=== PATIENT | female | born 1960 | race Caucasian/White ===

== ENCOUNTER → 2018-01-17 | Outpatient (CLI) | payer OTHER ==
[~2018-01-17] MED LIST: ALBU90OI61 INH; ATEN100 PO; ELIQUIS5 MG PO; HYDR1TAB94 PO; MAGOXI400 PO; Micardis80 MG PO; NYST100000; Percocet 5-3251 EACH PO; TELM80 PO; Voltaren100 GM TP; Zofran8 MG PO
[2018-01-17 19:13] LABS: Magnesium, Blood 1.7 mg/dL (1.6-2.4)
[2018-01-17 19:36] LABS: Alanine Aminotransfer (ALT/SGP 27 U/L (12-78); Albumin, Blood 3.9 g/dL (3.4-5.0); Alk Phos 155 U/L (50-136); Anion Gap 9 mmol/L (6-16); Aspartate Aminotrans (AST/SGOT 33 U/L (12-37); Bilirubin, Total 0.5 mg/dL (0.1-1.0); Blood Urea Nitrogen 6 mg/dL (8-24); Bun/Creatinine Ratio 8.9 (12.0-20.0); CO2, Blood 28 mmol/L (21-32); Calcium, Blood 9.5 mg/dL (8.5-10.1); Chloride, Blood 99 mmol/L (98-108); Creatinine, Blood 0.68 mg/dL (0.40-1.00); Globulin, Blood 3.8 g/dL (2.2-4.0); Glomerular Filtration Rate >60 (60-); Glucose, Blood 91 mg/dL (70-99); Potassium, Blood 4.3 mmol/L (3.5-5.5); Sodium, Blood 136 mmol/L (136-145); Total Protein, Blood 7.7 g/dL (6.4-8.2)
== END ==
LOC: LAB SHORT 16:00 → LAB 16:00
PROVIDERS: Family Medicine
DX: R94.5 Abnormal results of liver function studies (principal)
CPT/HCPCS: 80053; 82306; 82607; 82746; 83735

== ENCOUNTER 2018-07-07 13:49 | Day surgery (SDC) | payer OTHER ==
[~2018-07-07 13:49] MED LIST changes: +Ativan1 MG SL; +HYDMOR2 PO; +PROM25 PO; +Phenergan25 MG PR; +TRAM50 PO; +Zofran Odt4 MG SL
== END 2018-07-07 22:44 | disposition home or self-care (01) ==
LOC: CT 13:49 → ORD 13:49
PROC: 0FB23ZX Excision of Left Lobe Liver, Percutaneous Approach, Diagnostic (ICD-10-PCS; principal; 2018-07-07)
DX: C78.7 Secondary malignant neoplasm of liver and intrahepatic bile duct (principal); C34.2 Malignant neoplasm of middle lobe, bronchus or lung; C79.31 Secondary malignant neoplasm of brain; G93.89 Other specified disorders of brain; G89.3 Neoplasm related pain (acute) (chronic); I48.91 Unspecified atrial fibrillation; I10 Essential (primary) hypertension; J44.9 Chronic obstructive pulmonary disease, unspecified; E11.9 Type 2 diabetes mellitus without complications; E78.5 Hyperlipidemia, unspecified; R63.0 Anorexia; R63.4 Abnormal weight loss; R53.81 Other malaise; R61 Generalized hyperhidrosis; F17.210 Nicotine dependence, cigarettes, uncomplicated; Z79.01 Long term (current) use of anticoagulants; Z79.899 Other long term (current) drug therapy; Z88.8 Allergy status to other drugs, medicaments and biological substances
CPT/HCPCS: 47000; 77012; 88307; 88341; 88342

== ENCOUNTER 2018-07-28 13:09 | Day surgery (SDC) | payer OTHER ==
[2018-07-28] MEDS ORDERED: Fentanyl1 EAC4 TD (14:06)
[2018-07-28] MEDS ORDERED: ONDA8 PO (14:07)
[2018-07-28] MEDS ORDERED: DEXA4 PO (14:07)
[2018-07-28] MEDS ORDERED: MIRT15 PO (14:09)
[2018-07-28] MEDS ORDERED: CIPR500 PO (14:09)
[2018-07-28] MEDS ORDERED: FLUC200 PO (14:10)
== END 2018-07-28 15:14 | disposition home or self-care (01) ==
LOC: ATC 13:09
DX: C34.2 Malignant neoplasm of middle lobe, bronchus or lung (principal); C79.31 Secondary malignant neoplasm of brain; C78.7 Secondary malignant neoplasm of liver and intrahepatic bile duct
CPT/HCPCS: 36430; 86900; 86901; J7050; P9035

== ENCOUNTER 2018-09-13 09:31 | Day surgery (SDC) | payer OTHER ==
[2018-09-12 10:00] LABS: Hematocrit 21.9 % (33.0-51.0); Hemoglobin 6.9 g/dL (11.5-16.0); Mean Corpuscular HGB 32.9 pg (26.0-34.0); Mean Corpuscular HGB Conc 31.5 g/dL (31.5-36.5); Mean Corpuscular Volume 104 fL (80-100); Mean Platelet Volume 10.7 fL (9.1-12.4); Platelet Count 166 K/mm3 (150-400); RDW Coefficient Variation 19.7 % (11.7-14.2); RDW Standard Deviation 71.9 fL (35.1-46.3); White Blood Cell Count 18.07 K/mm3 (4.00-11.30)
[2018-09-12 10:14] LABS: Alanine Aminotransfer (ALT/SGP 37 U/L (12-78); Albumin, Blood 3.2 g/dL (3.4-5.0); Albumin/Globulin Ratio 0.9 (0.8-1.8); Alk Phos 285 U/L (50-136); Anion Gap 10 mmol/L (6-16); Aspartate Aminotrans (AST/SGOT 42 U/L (12-37); Blood Urea Nitrogen 12 mg/dL (8-24); Bun/Creatinine Ratio 23.6 (12.0-20.0); CO2, Blood 27 mmol/L (21-32); Calcium, Blood 8.4 mg/dL (8.5-10.1); Chloride, Blood 103 mmol/L (98-108); Creatinine, Blood 0.51 mg/dL (0.40-1.00); Globulin, Blood 3.5 g/dL (2.2-4.0); Glomerular Filtration Rate >60 (60-); Glucose, Blood 117 mg/dL (70-99); Potassium, Blood 3.6 mmol/L (3.5-5.5); Sodium, Blood 140 mmol/L (136-145); Total Protein, Blood 6.7 g/dL (6.4-8.2)
[2018-09-12 11:10] LABS: BAND PERCENT MAN 4 % (0-8); BASOPHILS PERCENT MAN 0 % (0-2); EOSINOPHILS PERCENT MAN 0 % (0-6); LYMPHOCYTES ABSOLUTE MAN 5.24 K/mm3 (0.84-5.20); LYMPHOCYTES PERCENT MAN 29 % (21-46); MONOCYTES ABSOLUTE MAN 0.36 K/mm3 (0.16-1.47); MONOCYTES PERCENT MAN 2 % (4-13); NEUTROPHILS ABSOLUTE MAN 12.46 K/mm3 (1.96-9.15); SEG NEUTROPHILS PERCENT MAN 65 % (41-73); TOTAL CELLS COUNTED 100
--- NOTE | 2018-09-12 16:58 | NUR ---
IV PADDED WITH 2X2S AND WRAPPED WITH COBAN AND BANDNET. PT RETURNING TOMORROW FOR 2ND UNIT OF PRBCS.
[~2018-09-13 09:31] MED LIST changes: +CIPR500 PO; +DEXA4 PO; +FLUC200 PO; +Fentanyl1 EAC4 TD; +MIRT15 PO; +ONDA8 PO
== END 2018-09-13 12:01 | disposition home or self-care (01) ==
LOC: ATC 09:31
PROVIDERS: Internal Medicine Hematology & Oncology
DX: C34.2 Malignant neoplasm of middle lobe, bronchus or lung (principal); C79.31 Secondary malignant neoplasm of brain; C78.7 Secondary malignant neoplasm of liver and intrahepatic bile duct; G89.3 Neoplasm related pain (acute) (chronic); F17.210 Nicotine dependence, cigarettes, uncomplicated; I48.91 Unspecified atrial fibrillation; I10 Essential (primary) hypertension; J44.9 Chronic obstructive pulmonary disease, unspecified; E11.9 Type 2 diabetes mellitus without complications; E78.5 Hyperlipidemia, unspecified
CPT/HCPCS: 36415; 36430; 80053; 82378; 85025; 86850; 86900; 86901; 86923; J7050; P9016

== ENCOUNTER 2018-10-25 13:47 | Day surgery (SDC) | payer OTHER | END 2018-10-25 22:37 | disposition home or self-care (01) | LOC: US 13:47 | DX: J90 Pleural effusion, not elsewhere classified (principal); C34.2 Malignant neoplasm of middle lobe, bronchus or lung; C79.31 Secondary malignant neoplasm of brain; C78.7 Secondary malignant neoplasm of liver and intrahepatic bile duct; G93.89 Other specified disorders of brain; G89.3 Neoplasm related pain (acute) (chronic) | CPT/HCPCS: 32555; 71045 ==

== ENCOUNTER 2019-01-13 14:41 | Emergency (ER) | payer OTHER ==
[~2019-01-13] VITALS: Ht 170.2 cm; Wt 63.5 kg
[2019-01-13 15:42] LABS: Source, Urine Clean Catch
[2019-01-13 15:55] LABS: Bilirubin, Urine Neg (Neg); Blood, Urine Neg (Neg); Glucose Qualitative, Urine Neg (Neg); Ketones, Urine Neg (Neg); Leukocyte Esterase, Urine Neg (Neg); Nitrite, Urine Neg (Neg); Protein, Urine Neg (Neg); Urobilinogen, Urine NORM (Normal)
[2019-01-13 16:25] LABS: Appearance, Urine Clear (Clear); Color, Urine Yellow (P-Yellow)
[2019-01-13] MEDS ORDERED: DEXA4 PO (16:30)
== END 2019-01-13 16:53 | disposition home or self-care (01) ==
LOC: ER 14:41
PROVIDERS: Physician Assistant
DX: C79.31 Secondary malignant neoplasm of brain (principal); C34.90 Malignant neoplasm of unspecified part of unspecified bronchus or lung; G93.40 Encephalopathy, unspecified; F17.210 Nicotine dependence, cigarettes, uncomplicated; Z88.8 Allergy status to other drugs, medicaments and biological substances
CPT/HCPCS: 70450; 81003; 99285-25